=== PATIENT | female | born 1955 | race Caucasian/White ===

== ENCOUNTER 2021-10-20 14:19 | Outpatient (CLI) | payer MEDICARE, OTHER | END 2021-10-20 14:20 | disposition home or self-care (01) | LOC: BICULT 14:19 | PROVIDERS: ATTEND Internal Medicine Nephrology | DX: N18.30 Chronic kidney disease, stage 3 unspecified (principal); N28.1 Cyst of kidney, acquired | CPT/HCPCS: 76770 ==

== ENCOUNTER 2022-07-20 13:15 | Outpatient (CLI) | payer MEDICARE | END 2022-07-20 13:16 | disposition home or self-care (01) | LOC: MRI 13:15 | PROVIDERS: ATTEND Family Medicine | DX: M48.062 Spinal stenosis, lumbar region with neurogenic claudication (principal); M51.9 Unspecified thoracic, thoracolumbar and lumbosacral intervertebral disc disorder | CPT/HCPCS: 72148 ==

== ENCOUNTER 2025-07-11 13:38 | Outpatient (CLI) | payer MEDICARE | END 2025-07-11 13:39 | disposition home or self-care (01) | LOC: BICCT 13:38 | PROVIDERS: ATTEND Family Medicine | DX: Z12.2 Encounter for screening for malignant neoplasm of respiratory organs (principal); Z87.891 Personal history of nicotine dependence; N26.1 Atrophy of kidney (terminal) | CPT/HCPCS: 71271 ==